=== PATIENT | female | born 1955 | race Caucasian/White ===

== ENCOUNTER 2022-06-03 08:15 | Outpatient (CLI) | payer MEDICARE, OTHER | END 2022-06-03 08:16 | disposition home or self-care (01) | LOC: TBSIIMAG 08:15 | PROVIDERS: ATTEND Neurological Surgery | DX: M47.22 Other spondylosis with radiculopathy, cervical region (principal); M46.02 Spinal enthesopathy, cervical region | CPT/HCPCS: 72040 ==